=== PATIENT | male | born 1970 | race Caucasian/White ===

== ENCOUNTER 2019-01-08 13:02 | Emergency (ER) | payer MEDICARE, OTHER ==
[~2019-01-08] VITALS: Ht 175.3 cm; Wt 100.0 kg
[~2019-01-08 13:02] MED LIST: CEPH500 PO; CLIN150C9 PO; GLYB2.5 PO; INSLAN SQ; INSNOV SQ; LISI-661 PO; METF-960 PO; SITA50 PO
[2019-01-08 13:13] LABS: GLUCOSE,POINT OF CARE 219 MG/DL (70-110)
[2019-01-08] MEDS ORDERED: GABA-533 PO (13:13)
[2019-01-08] MEDS ORDERED: CANA100T PO (13:13)
[2019-01-08 13:45] VITALS: BP 117/95
[2019-01-08] MEDS ORDERED: FAMOTIDINE 20 MG TABLET PO ONE (14:00)
[2019-01-08] MEDS ORDERED: DEXAMETHASONE SOD PHOS 4 MG/ML 5 ML VIAL IM ONE (14:00)
[2019-01-08] MEDS ORDERED: DiphenhydrAMINE HCL 50 MG/ML VIAL IM ONE (14:00)
== END 2019-01-08 14:56 | disposition home or self-care (01) ==
LOC: EMS 13:03
DX: L50.9 Urticaria, unspecified (principal); T36.1X5A Adverse effect of cephalosporins and other beta-lactam antibiotics, initial encounter; I10 Essential (primary) hypertension; E11.9 Type 2 diabetes mellitus without complications; F17.210 Nicotine dependence, cigarettes, uncomplicated; Z91.013 Allergy to seafood; Y92.89 Other specified places as the place of occurrence of the external cause
CPT/HCPCS: 82962; 96372; 99283; 99406; J1100; J1200

== ENCOUNTER 2019-01-13 09:25 | Inpatient (IN) | payer MEDICARE, OTHER ==
[~2019-01-13] VITALS: Ht 182.9 cm; Wt 138.0 kg
[~2019-01-13 09:25] MED LIST changes: +CANA100T PO; -CEPH500 PO; -CLIN150C9 PO; +GABA-533 PO; -INSLAN SQ; -INSNOV SQ; -SITA50 PO
[2019-01-13] MEDS ORDERED: INSU100V SQ (09:31)
[2019-01-13] MEDS ORDERED: OXYC10 PO (09:31)
[2019-01-13 09:39] LABS: GLUCOSE,POINT OF CARE 404 MG/DL (70-110)
[2019-01-13 10:32] LABS: BASOPHILS % (AUTO) 0.2 % (0.0-2.0); HEMOGLOBIN 15.6 g/dL (13.5-17.5); LYMPHOCYTES # (AUTO) 1.3 K/uL (1.0-4.8); LYMPHOCYTES % (AUTO) 11.9 % (22.0-44.0); MEAN CORPUSCULAR HEMOGLOBIN 32.3 pg (26.0-34.0); MEAN CORPUSCULAR HGB CONC 33.9 G/dL (31.0-37.0); MEAN CORPUSCULAR VOLUME 95 fL (80-100); MONOCYTES # (AUTO) 0.8 K/uL (0.1-1.0); MONOCYTES % (AUTO) 6.9 % (2.0-9.0); PLATELET COUNT (AUTO) 181 K/uL (150-450); RED BLOOD CELL COUNT(AUTO) 4.84 MIL/uL (4.50-5.90); RED CELL DISTRIBUTION WIDTH 12.4 % (11.5-14.5)
[2019-01-13 10:45] LABS: ANION GAP 11 mmol/L (8-16); CALCIUM, TOTAL 8.8 mg/dL (8.8-10.5); CARBON DIOXIDE 25 mmol/L (22-29); CHLORIDE 96 mmol/L (98-107); CREATININE 1.03 mg/dL (0.60-1.30); GLOMERULAR FILTR. RATE CALC > 60 mL/min (>60); GLUCOSE,RANDOM 369 mg/dL (70-110); POTASSIUM 3.6 mmol/L (3.5-5.1); SODIUM SERUM 132 mmol/L (136-145); UREA NITROGEN, BLOOD 30 mg/dL (7-18)
[2019-01-13 10:50] LABS: B-TYPE NATRIURETIC PEPTIDE 15 pg/mL (0-100)
[2019-01-13 10:51] LABS: ALANINE AMINOTRANSFERASE 178 U/L (12-78); ALBUMIN 3.3 g/dL (3.4-5.0); ALKALINE PHOSPHATASE 63 U/L (46-116); ASPARTATE AMINOTRANSFERASE 175 U/L (15-37); BILIRUBIN,TOTAL 2.3 mg/dL (0.1-1.0); TOTAL PROTEIN, SERUM 7.8 g/dL (6.4-8.2)
[2019-01-13 11:57] LABS: D-DIMER 1.53 mg/L FEU (0.00-0.50); INR 1.1 (0.9-1.1); PROTHROMBIN TIME 11.4 SEC (9.4-11.6)
[2019-01-13] MEDS ORDERED: SODIUM CHLORIDE 0.9% 1,000 ML IV ONE (12:30)
[2019-01-13] MEDS ORDERED: INSULIN REGULAR, HUMAN 100 UNITS/ML IVP ONE (12:30)
[2019-01-13] MEDS ORDERED: IOVERSOL 350 MG/ML 150 ML VIAL ONE (12:50)
[2019-01-13] MEDS ORDERED: SODIUM CHLORIDE 0.9% 0 ML ONE (12:50)
[2019-01-13] MEDS ORDERED: PIPERACILLIN/TAZO 3.375 GM/D5W 50 ML IV ONE (13:45)
[2019-01-13] MEDS ORDERED: ASPIRIN 325 MG TABLET PO ONE (14:00)
[2019-01-13] MEDS ORDERED: GADOBUTROL 1 MMOL/ML 10 ML VIAL IVP ONE (14:12)
[2019-01-13] MEDS ORDERED: LORazepam 2 MG/ML VIAL ONE (15:35)
[2019-01-13] MEDS ORDERED: LORazepam 2 MG/ML VIAL IVP ONE (15:45)
[2019-01-13 16:25] LABS: GLUCOSE,POINT OF CARE 320 MG/DL (70-110)
[2019-01-13] MEDS ORDERED: DiphenhydrAMINE HCL 50 MG/ML VIAL IVP ONE (16:30)
[2019-01-13] MEDS ORDERED: ACETAMINOPHEN 325 MG TABLET PO PRN ×2 (17:15→22:15)
[2019-01-13 18:04] VITALS: BP 148/98
[2019-01-13 19:13] VITALS: BP 137/92
[2019-01-13 20:30] LABS: GLUCOMETER DEV NAME(LOC) 5S.1; GLUCOSE,POINT OF CARE 300 MG/DL (70-110)
[2019-01-13] MEDS ORDERED: DEXTROSE 50%-WATER 25 GM/50 ML SYRINGE IVP PRN (20:45)
[2019-01-13] MEDS: INSULIN LISPRO 100 UNITS/ML SQ PRN (21:02)
[2019-01-13] MEDS ORDERED: ZOLPIDEM TARTRATE 5 MG TABLET PO PRN (22:15)
[2019-01-13] MEDS ORDERED: MORPHINE SULFATE 2 MG/ML SYRINGE IVP PRN (22:15)
[2019-01-13] MEDS ORDERED: MAGNESIUM HYDROXIDE SUSPENSION 30 ML UDCUP PO PRN (22:15)
[2019-01-13] MEDS ORDERED: BISACODYL 10 MG RECTAL RECTAL SUPPOSITORY PR PRN (22:15)
[2019-01-13] MEDS: DiphenhydrAMINE HCL 50 MG/ML VIAL IVP PRN (22:17)
[2019-01-13] MEDS: HEPARIN SODIUM,PORCINE 5,000 UNITS/ML VIAL SQ SCH (23:04)
[2019-01-13] MEDS: HYDROCODONE/ACETAMINOPHEN 5-325 MG TABLET PO PRN (23:05)
[2019-01-13 23:06] VITALS: BP 128/90
[2019-01-14] MEDS ORDERED: SODIUM CHLORIDE 0.9% 100 ML ONE (00:53)
[2019-01-14] MEDS: PIPERACILLIN/TAZO 3.375 GM/D5W 50 ML IV SCH ×2 (00:56→05:20)
[2019-01-14 02:34] LABS: GLUCOMETER DEV NAME(LOC) 5N.2; GLUCOSE,POINT OF CARE 368 MG/DL (70-110)
[2019-01-14] MEDS: ONDANSETRON HCL 4 MG/2 ML VIAL IVP PRN ×2 (03:23→11:34)
[2019-01-14 04:01] VITALS: BP 127/87
[2019-01-14 06:38] LABS: BASOPHILS % (AUTO) 0.2 % (0.0-2.0); EOSINOPHILS % (AUTO) 1.8 % (1.0-6.0); HEMATOCRIT 50.4 % (41-53); LYMPHOCYTES # (AUTO) 1.4 K/uL (1.0-4.8); LYMPHOCYTES % (AUTO) 15.1 % (22.0-44.0); MEAN CORPUSCULAR HEMOGLOBIN 32.6 pg (26.0-34.0); MEAN CORPUSCULAR HGB CONC 33.8 G/dL (31.0-37.0); MEAN CORPUSCULAR VOLUME 97 fL (80-100); MONOCYTES # (AUTO) 0.5 K/uL (0.1-1.0); NEUTROPHILS # (AUTO) 7.4 K/uL (1.8-7.7); NEUTROPHILS % (AUTO) 77.9 % (40.0-70.0); PLATELET COUNT (AUTO) 179 K/uL (150-450); RED BLOOD CELL COUNT(AUTO) 5.22 MIL/uL (4.50-5.90); RED CELL DISTRIBUTION WIDTH 12.9 % (11.5-14.5)
[2019-01-14 07:00] LABS: GLUCOMETER DEV NAME(LOC) 5S.1; GLUCOSE,POINT OF CARE 408 MG/DL (70-110)
[2019-01-14 07:07] LABS: ALANINE AMINOTRANSFERASE 128 U/L (12-78); ALBUMIN 2.7 g/dL (3.4-5.0); ALKALINE PHOSPHATASE 55 U/L (46-116); ANION GAP 17 mmol/L (8-16); ASPARTATE AMINOTRANSFERASE 69 U/L (15-37); BILIRUBIN,TOTAL 2.2 mg/dL (0.1-1.0); CARBON DIOXIDE 19 mmol/L (22-29); CHLORIDE 93 mmol/L (98-107); CREATININE 0.93 mg/dL (0.60-1.30); GLOMERULAR FILTR. RATE CALC > 60 mL/min (>60); GLUCOSE,RANDOM 330 mg/dL (70-110); SODIUM SERUM 129 mmol/L (136-145); TOTAL PROTEIN, SERUM 6.8 g/dL (6.4-8.2); UREA NITROGEN, BLOOD 30 mg/dL (7-18)
[2019-01-14] MEDS: INSULIN LISPRO 100 UNITS/ML SQ PRN ×2 (07:19→21:30)
[2019-01-14] MEDS: MetFORMIN HCL 500 MG TABLET PO SCH (08:00)
[2019-01-14 08:15] VITALS: BP 121/90
[2019-01-14] MEDS: DOCUSATE SODIUM 100 MG CAPSULE PO SCH ×2 (09:00→20:21)
[2019-01-14] MEDS ORDERED: PredniSONE 10 MG TABLET PO SCH (09:00)
[2019-01-14] MEDS: HEPARIN SODIUM,PORCINE 5,000 UNITS/ML VIAL SQ SCH ×3 (09:01→23:10)
[2019-01-14] MEDS: FAMOTIDINE 20 MG TABLET PO SCH ×2 (09:02→20:14)
[2019-01-14] MEDS: LISINOPRIL 10 MG TABLET PO SCH ×2 (09:02→20:21)
[2019-01-14] MEDS: PANTOPRAZOLE SODIUM 40 MG DR TABLET PO SCH (09:02)
[2019-01-14] MEDS: GABAPENTIN 400 MG CAPSULE PO SCH (09:45)
[2019-01-14] MEDS: DiphenhydrAMINE HCL 50 MG/ML VIAL IVP SCH ×2 (09:45→20:14)
[2019-01-14 11:02] VITALS: BP 123/86
[2019-01-14] MEDS: MethylPREDNISolone SOD SUCC 40 MG/ML VIAL IVP SCH (11:28)
[2019-01-14] MEDS: CLINDAMYCIN 600 MG/D5% WATER 50 ML IV SCH ×2 (11:29→18:04)
[2019-01-14] MEDS ORDERED: INSULIN LISPRO 100 UNITS/ML SQ ONE ×3 (11:45→23:00)
[2019-01-14 12:44] LABS: GLUCOMETER DEV NAME(LOC) 5N.2; GLUCOSE,POINT OF CARE 408 MG/DL (70-110)
[2019-01-14 15:48] VITALS: BP 98/63
[2019-01-14] MEDS ORDERED: SODIUM CHLORIDE 0.9% 250 ML IV ONE (18:00)
[2019-01-14 20:29] VITALS: BP 96/58
[2019-01-14] MEDS ORDERED: INSULIN GLARGINE,HUM.REC.ANLOG 100 UNITS/ML SQ SCH (21:00)
[2019-01-14] MEDS: INSULIN GLARGINE,HUM.REC.ANLOG 100 UNITS/ML SQ SCH (21:31)
[2019-01-14] MEDS: HYDROCODONE/ACETAMINOPHEN 5-325 MG TABLET PO PRN (23:11)
[2019-01-14 23:53] VITALS: BP 104/61
[2019-01-15 01:29] LABS: GLUCOMETER DEV NAME(LOC) 5N.2; GLUCOSE,POINT OF CARE 479 MG/DL (70-110)
[2019-01-15 01:29] LABS: GLUCOMETER DEV NAME(LOC) 5N.2; GLUCOSE,POINT OF CARE 556 MG/DL (70-110)
[2019-01-15 01:29] LABS: GLUCOMETER DEV NAME(LOC) 5N.1; GLUCOSE,POINT OF CARE 474 MG/DL (70-110)
[2019-01-15] MEDS: CLINDAMYCIN 600 MG/D5% WATER 50 ML IV SCH ×3 (02:02→18:14)
[2019-01-15] MEDS: DiphenhydrAMINE HCL 50 MG/ML VIAL IVP PRN (05:04)
[2019-01-15 05:22] VITALS: BP 137/77
[2019-01-15] MEDS: INSULIN LISPRO 100 UNITS/ML SQ PRN ×3 (05:58→20:17)
[2019-01-15 08:27] LABS: CHOL/HDL RATIO 6.2 (4.2-7.3)
[2019-01-15 08:29] VITALS: BP 115/75
[2019-01-15] MEDS: DOCUSATE SODIUM 100 MG CAPSULE PO SCH ×3 (09:00→20:09)
[2019-01-15] MEDS: LISINOPRIL 10 MG TABLET PO SCH ×2 (09:09→20:08)
[2019-01-15] MEDS: MethylPREDNISolone SOD SUCC 40 MG/ML VIAL IVP SCH (09:10)
[2019-01-15] MEDS: HEPARIN SODIUM,PORCINE 5,000 UNITS/ML VIAL SQ SCH ×3 (09:10→23:49)
[2019-01-15] MEDS: DiphenhydrAMINE HCL 50 MG/ML VIAL IVP SCH ×2 (09:10→20:08)
[2019-01-15] MEDS: FAMOTIDINE 20 MG TABLET PO SCH ×2 (09:11→20:08)
[2019-01-15] MEDS: MetFORMIN HCL 500 MG TABLET PO SCH (09:11)
[2019-01-15] MEDS: PANTOPRAZOLE SODIUM 40 MG DR TABLET PO SCH (09:11)
[2019-01-15 09:19] LABS: GLUCOMETER DEV NAME(LOC) 5N.1; GLUCOSE,POINT OF CARE 287 MG/DL (70-110)
[2019-01-15 09:19] LABS: GLUCOMETER DEV NAME(LOC) 5N.2; GLUCOSE,POINT OF CARE 398 MG/DL (70-110)
[2019-01-15] MEDS: INSULIN GLARGINE,HUM.REC.ANLOG 100 UNITS/ML SQ SCH ×3 (09:19→20:18)
[2019-01-15 12:23] VITALS: BP_SYST 127; BP_SYST 94; BP_DIAS 61; BP_DIAS 79
[2019-01-15] MEDS ORDERED: INSULIN GLARGINE,HUM.REC.ANLOG 100 UNITS/ML SQ ONE (12:30)
[2019-01-15] MEDS ORDERED: INSULIN GLARGINE,HUM.REC.ANLOG 100 UNITS/ML SQ SCH (12:30)
[2019-01-15] MEDS: GABAPENTIN 400 MG CAPSULE PO SCH (12:35)
[2019-01-15] MEDS ORDERED: INSULIN LISPRO 100 UNITS/ML SQ ONE ×2 (12:45→21:45)
[2019-01-15 13:24] LABS: GLUCOMETER DEV NAME(LOC) 5N.2; GLUCOSE,POINT OF CARE 486 MG/DL (70-110)
[2019-01-15 16:07] VITALS: BP 136/60
[2019-01-15] MEDS: HYDROCODONE/ACETAMINOPHEN 5-325 MG TABLET PO PRN ×2 (18:14→22:23)
[2019-01-15 19:24] LABS: GLUCOMETER DEV NAME(LOC) 5N.1; GLUCOSE,POINT OF CARE 354 MG/DL (70-110)
[2019-01-15 20:06] VITALS: BP 117/53
[2019-01-15 20:34] LABS: GLUCOMETER DEV NAME(LOC) 5N.2; GLUCOSE,POINT OF CARE 447 MG/DL (70-110)
[2019-01-15 23:36] VITALS: BP 115/65
[2019-01-16] MEDS: CLINDAMYCIN 600 MG/D5% WATER 50 ML IV SCH ×2 (03:55→10:07)
[2019-01-16] MEDS: HYDROCODONE/ACETAMINOPHEN 5-325 MG TABLET PO PRN ×2 (03:55→09:47)
[2019-01-16 04:44] VITALS: BP 126/65
[2019-01-16] MEDS: INSULIN LISPRO 100 UNITS/ML SQ PRN ×2 (06:24→12:13)
[2019-01-16 07:40] LABS: GLUCOMETER DEV NAME(LOC) 5N.1; GLUCOSE,POINT OF CARE 267 MG/DL (70-110)
[2019-01-16 07:51] VITALS: BP 126/82
[2019-01-16] MEDS ORDERED: PredniSONE 20 MG TABLET PO SCH (09:00)
[2019-01-16] MEDS: DOCUSATE SODIUM 100 MG CAPSULE PO SCH (09:00)
[2019-01-16] MEDS: MetFORMIN HCL 500 MG TABLET PO SCH (09:46)
[2019-01-16] MEDS: GABAPENTIN 400 MG CAPSULE PO SCH (09:47)
[2019-01-16] MEDS: FAMOTIDINE 20 MG TABLET PO SCH (09:47)
[2019-01-16] MEDS: LISINOPRIL 10 MG TABLET PO SCH (09:47)
[2019-01-16] MEDS: PANTOPRAZOLE SODIUM 40 MG DR TABLET PO SCH (09:47)
[2019-01-16] MEDS: DiphenhydrAMINE HCL 50 MG/ML VIAL IVP SCH (09:48)
[2019-01-16] MEDS: HEPARIN SODIUM,PORCINE 5,000 UNITS/ML VIAL SQ SCH (09:48)
[2019-01-16] MEDS: INSULIN GLARGINE,HUM.REC.ANLOG 100 UNITS/ML SQ SCH (09:53)
[2019-01-16 11:02] LABS: ANION GAP 8 mmol/L (8-16); CALCIUM, TOTAL 7.8 mg/dL (8.8-10.5); CARBON DIOXIDE 25 mmol/L (22-29); CHLORIDE 96 mmol/L (98-107); CREATININE 1.06 mg/dL (0.60-1.30); GLOMERULAR FILTR. RATE CALC > 60 mL/min (>60); GLUCOSE,RANDOM 300 mg/dL (70-110); SODIUM SERUM 129 mmol/L (136-145); UREA NITROGEN, BLOOD 30 mg/dL (7-18)
[2019-01-16] MEDS ORDERED: CLIN300C3 PO (11:25)
[2019-01-16] MEDS ORDERED: CIPR-278 PO (11:25)
[2019-01-16 11:27] VITALS: BP 129/77
[2019-01-16] MEDS ORDERED: PRED20 PO (11:27)
[2019-01-16 16:14] LABS: GLUCOMETER DEV NAME(LOC) 5N.2; GLUCOSE,POINT OF CARE 289 MG/DL (70-110)
[2019-01-16 16:14] LABS: GLUCOMETER DEV NAME(LOC) 5N.2; GLUCOSE,POINT OF CARE 313 MG/DL (70-110)
== END 2019-01-16 13:40 | disposition home or self-care (01) | DRG 638 ==
LOC: EMS 09:28 → 5S 17:12
PROVIDERS: ADMIT Internal Medicine; ATTEND Internal Medicine
DX: E11.65 Type 2 diabetes mellitus with hyperglycemia (principal); K80.10 Calculus of gallbladder with chronic cholecystitis without obstruction; E87.1 Hypo-osmolality and hyponatremia; Z68.41 Body mass index [BMI] 40.0-44.9, adult; E11.621 Type 2 diabetes mellitus with foot ulcer; L27.0 Generalized skin eruption due to drugs and medicaments taken internally; T36.1X5A Adverse effect of cephalosporins and other beta-lactam antibiotics, initial encounter; E66.9 Obesity, unspecified; R07.9 Chest pain, unspecified; I10 Essential (primary) hypertension; L50.9 Urticaria, unspecified; F17.210 Nicotine dependence, cigarettes, uncomplicated; L97.519 Non-pressure chronic ulcer of other part of right foot with unspecified severity; Z91.013 Allergy to seafood; Z89.429 Acquired absence of other toe(s), unspecified side; Y92.89 Other specified places as the place of occurrence of the external cause
CPT/HCPCS: 74176; 74183; 76700; 85379; 85651; 93005; A9585; G0378; J1200; J1644; J1815; J2060; J2405; J2543; J2920; J3490; J7030; J7050

== ENCOUNTER 2019-03-10 17:11 | Emergency (ER) | payer MEDICARE, OTHER ==
[~2019-03-10] VITALS: Ht 167.6 cm; Wt 135.3 kg
[~2019-03-10 17:11] MED LIST changes: +CIPR-278 PO; +CLIN300C3 PO; +INSU100V SQ; +OXYC10 PO; +PRED20 PO
[2019-03-10] MEDS ORDERED: SODIUM CHLORIDE 0.9% 1,000 ML IV ONE ×2 (17:15→19:15)
[2019-03-10 17:44] LABS: BASOPHILS % (AUTO) 0.5 % (0.0-2.0); HEMATOCRIT 44.4 % (41-53); HEMOGLOBIN 14.7 g/dL (13.5-17.5); LYMPHOCYTES # (AUTO) 1.7 K/uL (1.0-4.8); LYMPHOCYTES % (AUTO) 22.7 % (22.0-44.0); MEAN CORPUSCULAR HEMOGLOBIN 31.6 pg (26.0-34.0); MEAN CORPUSCULAR HGB CONC 33.1 G/dL (31.0-37.0); MEAN CORPUSCULAR VOLUME 96 fL (80-100); MONOCYTES # (AUTO) 0.5 K/uL (0.1-1.0); MONOCYTES % (AUTO) 7.3 % (2.0-9.0); NEUTROPHILS # (AUTO) 4.9 K/uL (1.8-7.7); NEUTROPHILS % (AUTO) 65.5 % (40.0-70.0); PLATELET COUNT (AUTO) 250 K/uL (150-450); RED BLOOD CELL COUNT(AUTO) 4.64 MIL/uL (4.50-5.90); RED CELL DISTRIBUTION WIDTH 13.8 % (11.5-14.5)
[2019-03-10 17:58] LABS: INR 1.1 (0.9-1.1); PROTHROMBIN TIME 11.4 SEC (9.4-11.6)
[2019-03-10 18:33] LABS: ANION GAP 16 mmol/L (8-16); CALCIUM, TOTAL 8.8 mg/dL (8.8-10.5); CARBON DIOXIDE 18 mmol/L (22-29); CHLORIDE 101 mmol/L (98-107); CREATININE 0.92 mg/dL (0.60-1.30); GLOMERULAR FILTR. RATE CALC > 60 mL/min (>60); GLUCOSE,RANDOM 370 mg/dL (70-110); POTASSIUM 3.7 mmol/L (3.5-5.1); SODIUM SERUM 135 mmol/L (136-145); UREA NITROGEN, BLOOD 4 mg/dL (7-18)
[2019-03-10 18:46] LABS: AMMONIA 40 umol/L (11-32)
[2019-03-10 18:48] LABS: TROPONIN I < 0.02 ng/mL (0.00-0.05)
[2019-03-10 18:53] LABS: SALICYLATE 3.5 mg/dL (2.8-20.0)
[2019-03-10 18:55] LABS: LACTIC ACID 4.5 mmol/L (0.4-2.0)
[2019-03-10 18:57] LABS: ALANINE AMINOTRANSFERASE 66 U/L (12-78); ALBUMIN 3.4 g/dL (3.4-5.0); ALKALINE PHOSPHATASE 65 U/L (46-116); ASPARTATE AMINOTRANSFERASE 73 U/L (15-37); BILIRUBIN,TOTAL 0.3 mg/dL (0.1-1.0); CREATINE KINASE, TOTAL ONLY 217 U/L (39-308); TOTAL PROTEIN, SERUM 8.3 g/dL (6.4-8.2)
[2019-03-10 19:12] LABS: ACETAMINOPHEN < 2 mcg/mL (10-30)
[2019-03-10] MEDS ORDERED: ZOLPIDEM TARTRATE 10 MG TABLET PO PRN (19:30)
[2019-03-10] MEDS ORDERED: OLANZapine 5 MG RAPDIS TABLET PO PRN (19:30)
[2019-03-10] MEDS ORDERED: LORazepam 2 MG TABLET PO PRN (19:30)
[2019-03-10 20:28] LABS: APPEARANCE,URINE CLEAR (CLEAR); BILIRUBIN,URINE NEGATIVE (NEGATIVE); GLUCOSE, URINE (UA) >=1000 mg/dL (NEGATIVE); KETONES,URINE NEGATIVE (NEGATIVE); LEUKOCYTE ESTERASE ,URINE NEGATIVE (NEGATIVE); NITRATE,URINE NEGATIVE (NEGATIVE); OCCULT BLOOD,URINE NEGATIVE (NEGATIVE); PH,URINE 5.5 (5.0-8.0); PROTEIN,URINE NEGATIVE (NEGATIVE); UROBILINOGEN,URINE 0.2 mg/dL (<=1.0)
[2019-03-10 20:32] LABS: AMPHET/METH SCREEN,URINE NEGATIVE (NEGATIVE); BARBITURATE SCREEN, URINE NEGATIVE (NEGATIVE); BENZODIAZEPINES SCREEN,URINE NEGATIVE (NEGATIVE); CANNABINOID SCREEN,URINE NEGATIVE (NEGATIVE); COCAINE SCREEN,URINE NEGATIVE (NEGATIVE); METHADONE SCREEN, URINE NEGATIVE (NEGATIVE); OPIATE SCREEN,URINE NEGATIVE (NEGATIVE); PHENCYCLIDINE SCREEN,URINE NEGATIVE (NEGATIVE)
[2019-03-10 20:40] LABS: BACTERIA,URINE None Seen /HPF (None Seen); RBC,URINE None Seen /HPF (0-2); SQUAMOUS EPITHELIAL CELL,UR Few /LPF (None Seen); WBC,URINE None Seen /HPF (0-5)
[2019-03-10] MEDS ORDERED: ONDANSETRON HCL 4 MG TABLET PO PRN (22:00)
[2019-03-10] MEDS ORDERED: CloNIDine HCL 0.1 MG TABLET PO PRN (22:00)
[2019-03-10] MEDS ORDERED: ALBUTEROL SULFATE HFA 90 MCG/PUFF 8 GM INHALER IH PRN (22:00)
[2019-03-10] MEDS ORDERED: ACETAMINOPHEN 325 MG TABLET PO PRN (22:00)
[2019-03-10] MEDS ORDERED: LOPERAMIDE HCL 2 MG CAPSULE PO PRN (22:00)
[2019-03-10] MEDS ORDERED: GuaiFENesin/D-METHORPHAN [SUGAR-FREE] 200-20MG/10 ML SYRUP UDCUP PO PRN (22:00)
[2019-03-10] MEDS ORDERED: MAGNESIUM HYDROXIDE SUSPENSION 30 ML UDCUP PO PRN (22:00)
[2019-03-10] MEDS ORDERED: MAG HYDROX/AL HYDROX/SIMETH ES 30 ML SUSPENSION UDCUP PO PRN (22:00)
[2019-03-10] MEDS ORDERED: IBUPROFEN 400 MG TABLET PO PRN (22:00)
[2019-03-10] MEDS ORDERED: PETROLATUM,WHITE 28 GM JELLY TP PRN (22:00)
[2019-03-10] MEDS ORDERED: NICOTINE 14 MG/24 HOUR PATCH TD PRN (22:00)
[2019-03-10] MEDS ORDERED: DOCUSATE SODIUM 100 MG CAPSULE PO PRN (22:00)
[2019-03-11] MEDS ORDERED: MetFORMIN HCL 500 MG TABLET PO SCH (08:00)
[2019-03-11 08:05] LABS: GLUCOSE,POINT OF CARE 307 MG/DL (70-110)
[2019-03-11] MEDS ORDERED: GABAPENTIN 300 MG CAPSULE PO SCH (09:00)
[2019-03-11] MEDS ORDERED: LISINOPRIL 10 MG TABLET PO SCH (09:00)
[2019-03-11] MEDS ORDERED: PredniSONE 20 MG TABLET PO SCH (09:00)
[2019-03-11 09:16] LABS: BASOPHILS % (AUTO) 0.6 % (0.0-2.0); EOSINOPHILS % (AUTO) 1.2 % (1.0-6.0); HEMATOCRIT 41.6 % (41-53); LYMPHOCYTES # (AUTO) 1.4 K/uL (1.0-4.8); LYMPHOCYTES % (AUTO) 13.9 % (22.0-44.0); MEAN CORPUSCULAR HEMOGLOBIN 31.9 pg (26.0-34.0); MEAN CORPUSCULAR HGB CONC 33.6 G/dL (31.0-37.0); MEAN CORPUSCULAR VOLUME 95 fL (80-100); MONOCYTES # (AUTO) 0.6 K/uL (0.1-1.0); MONOCYTES % (AUTO) 6.2 % (2.0-9.0); NEUTROPHILS # (AUTO) 7.8 K/uL (1.8-7.7); NEUTROPHILS % (AUTO) 78.1 % (40.0-70.0); PLATELET COUNT (AUTO) 217 K/uL (150-450); RED BLOOD CELL COUNT(AUTO) 4.39 MIL/uL (4.50-5.90); RED CELL DISTRIBUTION WIDTH 13.6 % (11.5-14.5)
[2019-03-11 09:24] LABS: HEMOGLOBIN A1C 7.3 % (4.5-6.2)
[2019-03-11 09:42] LABS: ALANINE AMINOTRANSFERASE 60 U/L (12-78); ALBUMIN 3.2 g/dL (3.4-5.0); ALKALINE PHOSPHATASE 60 U/L (46-116); ANION GAP 13 mmol/L (8-16); ASPARTATE AMINOTRANSFERASE 57 U/L (15-37); BILIRUBIN,TOTAL 0.8 mg/dL (0.1-1.0); CALCIUM, TOTAL 8.4 mg/dL (8.8-10.5); CARBON DIOXIDE 21 mmol/L (22-29); CHLORIDE 103 mmol/L (98-107); CHOL/HDL RATIO 8.6 (4.2-7.3); CHOLESTEROL 147 mg/dL (131-200); CREATININE 0.84 mg/dL (0.60-1.30); GLOMERULAR FILTR. RATE CALC > 60 mL/min (>60); GLUCOSE,RANDOM 318 mg/dL (70-110); HDL CHOLESTEROL 17 mg/dL (40-60); LDL CHOL (CALC.) 104 mg/dL (0-130); POTASSIUM 3.8 mmol/L (3.5-5.1); SODIUM SERUM 137 mmol/L (136-145); THYROID STIMULATING HORMONE 1.79 uIU/mL (0.36-3.74); TOTAL PROTEIN, SERUM 7.7 g/dL (6.4-8.2); TRIGLYCERIDES 131 mg/dL (15-150); UREA NITROGEN, BLOOD 9 mg/dL (7-18)
[2019-03-11 14:41] VITALS: BP 134/88
== END 2019-03-11 13:26 | disposition home or self-care (01) ==
LOC: EMS 17:11
DX: T43.212A Poisoning by selective serotonin and norepinephrine reuptake inhibitors, intentional self-harm, initial encounter (principal); R41.82 Altered mental status, unspecified; F32.9 Major depressive disorder, single episode, unspecified; F10.129 Alcohol abuse with intoxication, unspecified; E11.9 Type 2 diabetes mellitus without complications; I10 Essential (primary) hypertension; F17.210 Nicotine dependence, cigarettes, uncomplicated; Z79.899 Other long term (current) drug therapy; Z89.421 Acquired absence of other right toe(s); Z91.013 Allergy to seafood; Y92.89 Other specified places as the place of occurrence of the external cause
CPT/HCPCS: 36415; 70450; 71045; 80053; 80061; 80307; 81001; 82140; 82550; 82962; 83036; 83605; 84443; 84484; 85025; 85610; 85730; 87040; 93005; 96360; 96361; 99291; G0480; J7030; J7512; Q0162; 51702; G0481